=== PATIENT | female | born 1990 | race African-American/Black ===

== ENCOUNTER 2022-05-09 11:58 | Emergency (ER) | payer SELFPAY ==
[~2022-05-09] VITALS: Ht 165.1 cm; Wt 79.0 kg
[2022-05-09] MEDS ORDERED: METOPROLOL SUCCINATE 50MG ER TABLET PO STA (14:07)
[2022-05-09] MEDS ORDERED: METO200T48 MT (15:55)
[2022-05-09 16:01] VITALS: BP 184/106
== END 2022-05-09 16:52 | disposition home or self-care (01) ==
LOC: ER 11:58
DX: I10 Essential (primary) hypertension (principal); Z98.890 Other specified postprocedural states; F10.229 Alcohol dependence with intoxication, unspecified; Y90.0 Blood alcohol level of less than 20 mg/100 ml
CPT/HCPCS: 81025; 99283